=== PATIENT | male | born 2000 | race African-American/Black ===

== ENCOUNTER 2022-09-20 13:24 | Emergency (ER) | payer OTHER ==
[2022-09-20] MEDS ORDERED: IBUPROFEN 600 MG TABLET (FP) PO ONE ×2 (13:48→13:57)
[2022-09-20 13:51] VITALS: BP 132/81; PULSE 85; RESP 18; TEMP 99.8; BMI 23.6
== END 2022-09-20 14:06 | disposition home or self-care (01) ==
LOC: FER 13:24
DX: J02.9 Acute pharyngitis, unspecified (principal)
CPT/HCPCS: 0241U-QW; 87651; 99283-25